=== PATIENT | female | born 1945 | race Caucasian/White ===

== ENCOUNTER 2019-11-16 17:35 | Emergency (ER) | payer OTHER, MEDICARE ==
[~2019-11-16] VITALS: Ht 167.6 cm; Wt 98.9 kg
[~2019-11-16 17:35] MED LIST: AMIT75TA2 PO; ESCI20TA PO; FERR-57 PO; LEVO100T9 PO; LEVO500T20 PO; METR500T PO; PRO40 PO; SIMV20TA2 PO; SOM350 PO; WELSR100 PO
[2019-11-16 17:46] VITALS: BP_SYST 178
--- NOTE | 2019-11-16 17:50 | NUR ---
Patient triaged and placed in hallway. VSS and patient appears in no acute distress at this time. Accompanied by , awaiting available bed, and MD notified of need for MSE.
[2019-11-16] MEDS ORDERED: PROPOFOL 200MG/ 20ML VIAL (DIPRIVAN) IV ONE (18:15)
[2019-11-16] MEDS ORDERED: fentaNYL CITRATE/PF 100 MCG/2 ML AMP IM ONE (18:15)
--- NOTE | 2019-11-16 18:15 | NUR ---
ER at bedside examining patient.
--- NOTE | 2019-11-16 18:18 | NUR ---
Patient to ER bed 04 for evaluation. Side rails up.
--- NOTE | 2019-11-16 18:20 | NUR ---
BIB ambulance crew with cc of mechanical fall.left elbow abrasion. screaming of pain when touching or moving. assessment done. vital sign stable, afebrile.
[2019-11-16] MEDS ORDERED: KETAMINE 30 MG/3 ML SYRINGE IVP ONE (18:45)
[2019-11-16 18:52] LABS: BASOPHILS # (AUTO) 0.1 K/uL (0.0-0.2); BASOPHILS % (AUTO) 1.1 % (0.0-2.0); EOSINOPHILS # (AUTO) 0.1 K/uL (0.0-0.4); EOSINOPHILS % (AUTO) 0.6 % (0.0-4.0); HEMATOCRIT 36.2 % (36-48); HEMOGLOBIN 12.2 g/dL (12.0-16.0); LYMPHOCYTES # (AUTO) 1.3 K/uL (1.0-5.5); LYMPHOCYTES % (AUTO) 12.1 % (20.5-51.5); MEAN CORPUSCULAR HEMOGLOBIN 29 pg (27-31); MEAN CORPUSCULAR HGB CONC 34 % (32-36); MEAN CORPUSCULAR VOLUME 87 fL (79.0-98.0); MONOCYTES # (AUTO) 0.6 K/uL (0.0-1.0); MONOCYTES % (AUTO) 5.8 % (1.7-9.3); NEUTROPHILS # (AUTO) 8.9 K/uL (1.8-7.7); NEUTROPHILS % (AUTO) 80.4 % (40.0-70.0); PLATELET COUNT (AUTO) 296 K/uL (130-430); RED BLOOD CELL COUNT(AUTO) 4.15 MIL/uL (4.2-6.2); RED CELL DISTRIBUTION WIDTH 14.2 % (9.0-15.0); WHITE BLOOD COUNT (AUTO) 11.1 K/uL (4.8-10.8)
[2019-11-16 18:58] LABS: ANION GAP 15 (5-15); CALCIUM 9.2 mg/dL (8.4-11.0); CHLORIDE 101 mmol/L (98-107); CREATININE 0.97 mg/dL (0.55-1.30); GLUCOSE 131 mg/dL (70-99); SODIUM SERUM 139 mmol/L (136-145); UREA NITROGEN, BLOOD 17 mg/dL (8-21)
[2019-11-16 19:09] LABS: ALANINE AMINOTRANSFERASE 43 U/L (12-78); ALBUMIN 3.9 g/dL (3.4-4.8); ASPARTATE AMINOTRANSFERASE 52 U/L (10-37); TOTAL BILIRUBIN 0.8 mg/dL (0.0-1.0)
--- NOTE | 2019-11-16 19:15 | NUR ---
Report recieved From NIALL Grier
--- NOTE | 2019-11-16 19:27 | NUR ---
Team time out performed prior to moderate sedation and closed reduction of L shoulder. Pre-procedure cardiac strip printed, vitals logged. Site, patient, consent, allergies verified. Physician, FOLDER TIER, EMT, 2 RN's present. Code-Cart bedside.
--- NOTE | 2019-11-16 19:30 | NUR ---
Pt Being monitored bedside Post Moderate sedation. Pt tolerating well, receuperating with expected results.
--- NOTE | 2019-11-16 19:30 | NUR ---
Moderate sedation initiated with 40mg dose of propofol via IV given by
--- NOTE | 2019-11-16 19:32 | NUR ---
Procedure completed. Pt placed in sling/swath for comfort
--- NOTE | 2019-11-16 19:45 | NUR ---
Pt resting in bed, recouperating well from moderate sedation. Pt awake, alert, oriented and no distress at this time.
[2019-11-16] MEDS ORDERED: POTASSIUM CHLORIDE 20 MEQ TAB.PRT.SR PO ONE (20:15)
--- NOTE | 2019-11-16 20:30 | NUR ---
Pt appears to have returned to baseline with mental orientation and vital signs. Pt resting comfortably with only intermittent pain to L shoulder.
--- NOTE | 2019-11-16 20:30 | NUR ---
Patient transported to radiology via [facility], accompanied by Abdi.
--- NOTE | 2019-11-16 21:00 | NUR ---
Returned from radiology, back to [facility].
--- NOTE | 2019-11-16 21:10 | NUR ---
Bedside speaking with patient about results, treatment plan
[2019-11-16] MEDS ORDERED: MORPHINE 2 MG/ML INJ. SYRINGE IVP ONE (21:30)
--- NOTE | 2019-11-16 21:40 | NUR ---
Pt resting in ED bed comfortably with bedside. Pt states that she is having periodic re-occurence of pain upon movement. No pain at rest
--- NOTE | 2019-11-16 22:15 | NUR ---
bedside discussing treatment results, imaging and discharge plan with patient.
[2019-11-16 22:20] VITALS: BP_SYST 155
--- NOTE | 2019-11-16 22:20 | NUR ---
Patient given written and verbal discharge instructions and verbalizes understanding. ER MD discussed with patient the results and treatment provided. Patient in stable condition. ID arm band removed. IV catheter removed intact and dressing applied, no active bleeding. Pt returned to baseline post Moderate sedation and procedure. Rx of [place] 10/325 given. Patient educated on pain management and to follow up with PMD. Pain Scale 3/10 Upon Discharge. Opportunity for questions provided and answered. Medication side effect fact sheet provided.
== END 2019-11-16 22:20 | disposition home or self-care (01) ==
LOC: SED 17:35
DX: S43.005A Unspecified dislocation of left shoulder joint, initial encounter (principal); M19.90 Unspecified osteoarthritis, unspecified site; K21.9 Gastro-esophageal reflux disease without esophagitis; I10 Essential (primary) hypertension; E07.9 Disorder of thyroid, unspecified; Z90.49 Acquired absence of other specified parts of digestive tract; Z79.899 Other long term (current) drug therapy; W10.8XXA Fall (on) (from) other stairs and steps, initial encounter; Y93.89 Activity, other specified; Y92.89 Other specified places as the place of occurrence of the external cause; Y99.8 Other external cause status
CPT/HCPCS: 23650; 36415; 70450; 73030; 73060; 73200; 80053; 85025; 96374; 99285; J2270; J2704; J3010

== ENCOUNTER 2020-08-02 20:06 | Emergency (ER) | payer OTHER, MEDICARE ==
[~2020-08-02] VITALS: Ht 167.6 cm; Wt 102.1 kg
[2020-08-02 20:31] VITALS: BP_SYST 159
--- NOTE | 2020-08-02 20:35 | NUR ---
Patient to ER bed 3 to gown for evaluation. Side rails up.
--- NOTE | 2020-08-02 20:40 | NUR ---
DR. DAUGHERTY AT THE BEDSIDE EXAMINING PT
[2020-08-02] MEDS ORDERED: LEVO112T5 PO (20:43)
[2020-08-02] MEDS ORDERED: LISI1TAB32 PO (20:45)
[2020-08-02] MEDS ORDERED: KETOROLAC TROMETHAMINE 30 MG VIAL IM ONE (20:45)
[2020-08-02] MEDS ORDERED: PRO20 PO (20:46)
[2020-08-02] MEDS ORDERED: LIP40 PO (20:46)
[2020-08-02] MEDS ORDERED: IMIP50TA2 PO (20:47)
[2020-08-02] MEDS ORDERED: GABA-531 PO (20:47)
[2020-08-02] MEDS ORDERED: HYDR-3925 PO (20:49)
[2020-08-02] MEDS ORDERED: BUPR300T55 PO (20:49)
--- NOTE | 2020-08-02 20:50 | NUR ---
PT BIB FOR INCREASED LEFT SHOULDER PAIN. REPORTS AN INJURY FROM 8 MONTHS AGO DISLOCATING L SHOULDER. SHE STATES THAT SHE IS [place]ED[place] [facility]. HER PAIN TONIGHT WAS UNMANAGEABLE. SHE IS AAOX4, V/S STABLE. WILL MONITOR FOR SAFETY
--- NOTE | 2020-08-02 21:00 | NUR ---
PT MEDICATED WITH TORADOL PER MD ORDER, PT TOLERATED WELL
--- NOTE | 2020-08-02 21:45 | NUR ---
PT REPORTS DECREASE IN PAIN, NOW 3/10. RESTING COMFORTABLY IN BED
[2020-08-02 22:00] VITALS: BP_SYST 159
--- NOTE | 2020-08-02 22:00 | NUR ---
Patient given written and verbal discharge instructions and verbalizes understanding. ER MD discussed with patient the results and treatment provided. Patient in stable condition. ID arm band removed. Rx of TYLENOL EXTRA STRENGTH given. Patient educated on pain management and to follow up with PMD. Pain Scale 3/10. Opportunity for questions provided and answered. Medication side effect fact sheet provided.
--- NOTE | 2020-08-02 22:08 | NUR ---
Anni tee in ED - 08/02/20 at 2209 by [email or web address] Patient to bed 3 to [facility] for evaluation. Side rails up. REPORT RECEIVED FROM NIALL ARCOS
== END 2020-08-02 22:00 | disposition home or self-care (01) ==
LOC: SED 20:06
DX: G89.29 Other chronic pain (principal); M25.512 Pain in left shoulder; I10 Essential (primary) hypertension; E07.9 Disorder of thyroid, unspecified; K21.9 Gastro-esophageal reflux disease without esophagitis; Z79.899 Other long term (current) drug therapy
CPT/HCPCS: 73030; 96374; 99283; J1885